=== PATIENT | male | born 1960 | race Caucasian/White ===

== ENCOUNTER → 2022-02-16 16:29 | Outpatient (CLI) | payer OTHER, SELFPAY ==
--- NOTE | 2022-02-16 | DI.MRI.S_ITS ---
PROCEDURE: MR LUMBAR SPINE WO CON INDICATIONS: LOW BACK PAIN, UNSPECIFIED TECHNIQUE: Noncontrast sagittal T1 spin echo and T2 fast echo, sagittal STIR, and T2 fast spin echo through the lumbar spine. In cases with scoliosis, additional coronal T2 fast spin echo may be performed. COMPARISON: [facility] [place], [place], XR LUMBAR SPINE WITH OBLIQUES PLUS FLEXION EXTENSION, 01/12/2022, 13:20. FINDINGS: Image quality: Excellent. Alignment and Curvature: There is normal bony alignment. Bone Marrow: Marrow is of normal overall signal. No acute vertebral body compression fractures. Spinal Cord: Conus medullaris terminates at the L1 level. Visualized cord demonstrates normal signal and size. Paraspinous Soft Tissues: No paravertebral masses. T12-L1: Normal appearance. L1-L2: Normal appearance. L2-L3: Normal appearance. L3-L4: Loss of disc signal. No central stenosis. No neural foraminal narrowing. No neural compression. L4-L5: Loss of disc signal and slight loss of disc height. Mild, diffuse disc bulge. Mild bilateral facet hypertrophy. No central stenosis. Mild right and severe left neural foraminal narrowing with compression of the exiting left L4 nerve root. Fissure noted in the anterior annulus. L5-S1: Normal appearance. IMPRESSION: 1. L3-L4 and L4-L5 degenerative disc disease. 2. L4-L5 facet arthropathy. 3. No severe central canal narrowing. 4. Severe left L4-L5 neural foraminal narrowing with compression of the exiting left L4 nerve root. 5. L4-L5 disc annulus fissure. Dictated by: Kiarra Wheatley MD, PhD on 02/17/2022 at 9:42 Approved by: Kiarra Wheatley MD, PhD on 02/17/2022 at 9:44
== END ==
PROVIDERS: Family Provider Family Medicine Geriatric Medicine; PCP Family Medicine Geriatric Medicine; Referring Provider Physical Medicine & Rehabilitation Pain Medicine; Visit Provider Physical Medicine & Rehabilitation Pain Medicine
DX: M51.36 Other intervertebral disc degeneration, lumbar region (principal); M47.816 Spondylosis without myelopathy or radiculopathy, lumbar region; M48.061 Spinal stenosis, lumbar region without neurogenic claudication; M54.50 Low back pain, unspecified
CPT/HCPCS: 72148